=== PATIENT | male | born 1980 | race African-American/Black ===

== ENCOUNTER 2018-05-31 14:35 | Emergency (ER) | payer OTHER ==
[~2018-05-31] VITALS: Ht 175.3 cm; Wt 90.5 kg
[2018-05-31 15:10] VITALS: BP 130/77
--- NOTE | 2018-05-31 16:52 | NUR ---
PT AMBULATED TO BED 01.
--- NOTE | 2018-05-31 16:54 | NUR ---
37 Y/O BIB FAMILY WITH C/O SORE THROAT WITH COUGH SINCE THURSDAY. PT AAOX4. NO S/S OF DISTRESS NOTED. RR EVEN/UNLABORED. DENIES FEVER, NVD HX; DENIES RX; DENIES
[2018-05-31 17:50] VITALS: BP 132/72
--- NOTE | 2018-05-31 17:50 | NUR ---
Patient discharged with v/s stable. Written and verbal after care instructions given and explained. Patient alert, oriented and verbalized understanding of instructions. Ambulatory with steady gait. All questions addressed prior to discharge. ID band removed. Patient advised to follow up with PMD. Rx of Promethazine, Motrin given. Patient educated on indication of medication including possible reaction and side effects. Opportunity to ask questions provided and answered.
== END 2018-05-31 17:50 | disposition home or self-care (01) ==
LOC: MED 14:35
DX: J06.9 Acute upper respiratory infection, unspecified (principal)
CPT/HCPCS: 87081; 99283